=== PATIENT | male | born 1950 | race Caucasian/White ===

== ENCOUNTER 2017-04-27 02:05 | Emergency (ER) | payer MEDICARE, BC ==
[2017-04-27] MEDS ORDERED: Bacitracin Oint 1 GM U/D Packet TOP ONE (03:04)
--- NOTE | 2017-04-27 03:12 | EDM.PDOC ---
ED HPI GENERAL MEDICAL PROBLEM - General Chief Complaint: Laceration Stated Complaint: FELL & HIT HEAD Time Seen by Provider: 04/27/17 03:04 Source of Information: Reports: Patient, Family, RN Notes Reviewed History Limitations: Reports: No Limitations - History of Present Illness INITIAL COMMENTS - FREE TEXT/NARRATIVE: 66-year-old gentleman presents to the emergency department today with laceration to the top of the scalp he had awoken gone to the bathroom Upon return he did not turn on the light he tripped over bowling bag in and up falling and hitting the top of his head, he has an abrasion and a 2 cm laceration at this time is, he did not lose consciousness no functional complaints - Related Data Allergies Allergy/AdvReac Type Severity Reaction Status Date / Time No Known Allergies Allergy Verified 04/27/17 02:47 Home Meds: Home Meds Aspirin [Halfprin] 81 mg PO DAILY 04/27/17 [History] Atenolol/Chlorthalidone [Atenolol-Chlorthalidone 50-25] 0.5 tab PO DAILY [History] Insulin Regular, Human [NovoLIN R] 10 unit SUBCUT ACBED 04/27/17 [History] Insulin Regular, Human [NovoLIN R] 12 unit SUBCUT ACBREAKFAST 04/27/17 [History] Lisinopril 5 mg PO DAILY 04/27/17 [History] Multivitamin [Multi-Day Vitamins] 1 tab PO DAILY 04/27/17 [History] Pravastatin [Pravachol] 80 mg PO DAILY 04/27/17 [History] glyBURIDE [Glyburide] 5 mg PO DAILY 04/27/17 [History] metFORMIN HCl [Metformin HCl] 1,000 mg PO BID 04/27/17 [History] Past Medical History HEENT History: Reports: Impaired Vision Cardiovascular History: Reports: High Cholesterol, Hypertension Endocrine/Metabolic History: Reports: Diabetes, Type II - Past Surgical History Musculoskeletal Surgical History: Reports: Other (See Below) Other Musculoskeletal Surgeries/Procedures:: cervical fusion Social & Family History - Tobacco Use Smoking Status *Q: Never Smoker Second Hand Smoke Exposure: No - Caffeine Use Caffeine Use: Reports: Coffee - Recreational Drug Use Recreational Drug Use: No ED ROS GENERAL - Review of Systems Review Of Systems: See Below Constitutional: Reports: No Symptoms GI/Abdominal: Reports: No Symptoms Skin: Reports: Wound ED EXAM, SKIN/RASH Exam: See Below Exam Limited By: No Limitations General Appearance: Alert, WD/WN, No Apparent Distress Eye Exam: Bilateral Eye: Normal Inspection Ears: Normal External Exam, Normal Canal, Hearing Grossly Normal, Normal TMs Front/Back Body Diagram: 1 - 2 cm laceration completely through the dermis ED SKIN PROCEDURES - Laceration/Wound Repair Head Lac/Wound length In cm: 2 Appearance: Subcutaneous Distal NVT: Neuro & Vascular Intact, No Tendon Injury Anesthetic Type: Local Local Anesthesia - Lidocaine (Xylocaine): 1% with EPI Local Anesthetic Volume: 1cc Skin Prep: Saline Saline Irrigation (cc's): 20 Exploration/Debridement/Repair: Wound Explored, In a Bloodless Field, Explored to Base Closed with: [place] # of Sutures: 3 Sterile Dressing Applied: Nurse Tetanus Status Addressed: Yes (2017) Complications: No Course - Vital Signs Last Recorded V/S: Last Vital Signs Temp 96.5 F 04/27/17 02:47 Pulse 84 04/27/17 02:47 Resp 20 04/27/17 02:47 BP 166/90 H 04/27/17 02:47 Pulse Ox 98 04/27/17 02:47 - Orders/Labs/Meds Meds: Medications Discontinued Medications Generic Name Dose Route Start Last Admin Trade Name Freq PRN Reason Stop Dose Admin Bacitracin 1 dose 04/27/17 03:04 Bacitracin Oint 1 Gm TOP 04/27/17 03:05 ONETIME ONE Departure - Departure Time of Disposition: 03:19 Disposition: Home, Self-Care 01 Condition: Good Clinical Impression: Laceration of head Qualifiers: Encounter type: initial encounter Location of open wound of head: scalp Foreign body presence: without foreign body Qualified Code(s): S01.01XA - Laceration without foreign body of scalp, initial encounter - Discharge Information Referrals: PCP,None [Primary Care Provider] - Forms: ED Department Discharge Additional Instructions: Staple removal in 10 days, follow up primary care or return to the emergency department, call return to the emergency department with worsening of symptoms - Assessment/Plan Plan: Assessment Acuity = acute Site and laterality = 2 cm laceration scalp Etiology = secondary to trauma Manifestations = none Location of injury = Home Lab values = none Plan Stable removal in 10 days, follow up with primary care or return to the emergency department for removal, follow wound care instruction sheet This note was dictated using [employer] voice recognition software please call with any questions on syntax or chela.
== END 2017-04-27 03:34 | disposition home or self-care (01) ==
LOC: JP.ED 02:05
DX: S01.81XA Laceration without foreign body of other part of head, initial encounter (principal); W01.0XXA Fall on same level from slipping, tripping and stumbling without subsequent striking against object, initial encounter; E78.00 Pure hypercholesterolemia, unspecified; E11.9 Type 2 diabetes mellitus without complications; I10 Essential (primary) hypertension; Y92.002 Bathroom of unspecified non-institutional (private) residence as the place of occurrence of the external cause; Z79.82 Long term (current) use of aspirin; Z79.899 Other long term (current) drug therapy; Z79.4 Long term (current) use of insulin
CPT/HCPCS: 12011; 99283-25